=== PATIENT | male | born 1975 | race Caucasian/White ===

== ENCOUNTER 2016-10-16 21:10 | Emergency (ER) | payer SELFPAY ==
[~2016-10-16] VITALS: Ht 177.8 cm; Wt 112.6 kg
[~2016-10-16 21:10] MED LIST: ASPI81 PO; NITR0.4S SL
[2016-10-16 21:15] VITALS: BP 151/99; PULSE 106; RESP 18; TEMP 98.8; O2SAT 96
[2016-10-16] MEDS ORDERED: VICOTAB4 PO (21:25)
[2016-10-16] MEDS ORDERED: TYLETAB34 PO (21:25)
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
--- NOTE | 2016-10-16 21:49 | RADHPO ---
EXAM DATE/TIME: 10/16/2016 21:33 [facility] COMPARISON: No previous studies available for comparison. INDICATIONS : Complains of left hand pain, 1,2 & 3 proximal metacarpal. MEDICAL HISTORY : None. SURGICAL HISTORY : None. ENCOUNTER: Initial ACUITY: 2 days PAIN SCORE: 6/10 LOCATION: Left hand FINDINGS: Three view examination of the left hand demonstrates no soft tissue swelling, dislocation, or fractur e. The carpal bones appear intact. The interphalangeal and metacarpophalangeal joints are intact. Bony mineralization is normal. There are old, healed distal shaft fractures of the left radius partly included on this study. CONCLUSION: No fracture or subluxation seen of the left hand. Igor Rios MD on October 16, 2016 at 21:46 Board Certified Radiologist. This report was verified electronically.
== END 2016-10-16 21:58 | disposition home or self-care (01) ==
LOC: PHEFT 21:10
DX: S60.222A Contusion of left hand, initial encounter (principal); W22.8XXA Striking against or struck by other objects, initial encounter
CPT/HCPCS: 73130; 99283

== ENCOUNTER 2016-10-20 13:31 | Emergency (ER) | payer SELFPAY ==
[~2016-10-20] VITALS: Ht 177.8 cm; Wt 111.8 kg
[~2016-10-20 13:31] MED LIST changes: -ASPI81 PO; -NITR0.4S SL; +TYLETAB34 PO; +VICOTAB4 PO
[2016-10-20 13:36] VITALS: BP 145/96; PULSE 97; RESP 16; TEMP 97.9; O2SAT 95
[2016-10-20] MEDS ORDERED: OXYC1TAB63 PO (15:22)
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
[2016-10-20] MEDS ORDERED: PRED10PA2 PO (16:33)
== END 2016-10-20 16:52 | disposition home or self-care (01) ==
LOC: PHED 13:31
DX: M25.512 Pain in left shoulder (principal); R20.0 Anesthesia of skin; E78.00 Pure hypercholesterolemia, unspecified; Z87.891 Personal history of nicotine dependence
CPT/HCPCS: 73030; 99283